=== PATIENT | male | born 1950 | race Caucasian/White ===

== ENCOUNTER 2021-03-05 16:57 | Inpatient (IN) ==
[2021-03-05] MEDS ORDERED: Ondansetron ODT 4 MG TAB.RAPDIS SL PRN (22:45)
[2021-03-05] MEDS ORDERED: Melatonin 3 MG TABLET PO PRN (22:45)
[2021-03-05] MEDS ORDERED: Naloxone 0.4 MG/ML INJ IVP PRN (22:45)
[2021-03-05] MEDS ORDERED: *HR* Heparin 5,000 UNIT/ML VIAL IVP PRN (22:49)
[2021-03-05] MEDS ORDERED: *HR* Dextrose 50 % in Water (Syg) 50 ML SYRINGE IVP PRN (22:51)
[2021-03-05] MEDS ORDERED: D5% in Water 1,000 ML IVC PRN (22:51)
[2021-03-05] MEDS ORDERED: Dextrose Gel 15 GM/37.5 ML TUBE PO PRN ×2 (22:51)
[2021-03-05] MEDS ORDERED: *HR* Metoprolol 5 MG/5 ML VIAL IVP PRN (23:08)
[2021-03-05 23:35] LABS: Hematocrit 39.9 % (37.5-50.1); Mean Corpuscular HGB Conc 30.1 g/dL (31.6-35.5); Mean Corpuscular Hemoglobin 25.9 pg (28.0-33.3); Mean Corpuscular Volume 86.2 fL (83.0-100.0); Mean Platelet Volume 11.7 fL (9.4-12.4); Platelet Count 250 K/mcL (140-400); Red Blood Count 4.63 M/mcL (4.19-5.50); Red Cell Distribution Width 16.8 % (11.5-14.5); White Blood Count 10.7 K/mcL (4.3-11.1)
[2021-03-05] MEDS: Insulin LISPRO 300 UNITS/3 ML VIAL SUBQ SCH (23:36)
[2021-03-06 00:50] LABS: INR 1.3; Prothrombin Time 14.2 Seconds (9.4-12.1)
[2021-03-06 00:52] LABS: Activated Partial Thrombo Time 64.9 Seconds (26.0-36.0); C-Reactive Protein 33 mg/L (Less than 10); Lactate Dehydrogenase 898 Units/L (140-271)
[2021-03-06 00:56] LABS: Albumin 3.6 g/dL (3.5-5.7); Albumin/Globulin Ratio 1.2 (1.1-2.2); Bilirubin,Total 0.6 mg/dL (0.3-1.0); Globulin 3.1 g/dL (2.4-3.5); Potassium 4.2 mEq/L (3.5-5.1); Total Protein 6.7 g/dL (6.4-8.9); Troponin I 0.41 ng/mL (< 0.04)
[2021-03-06 01:18] LABS: Ferritin > 1500 ng/mL (20-250)
[2021-03-06] MEDS: Heparin 25,000UNIT/250ML 1/2NS 25,000 UNIT/250 ML IV.SOLN IVC SCH (01:28)
[2021-03-06] MEDS: Metoprolol XL (24 HR) Succ 50 MG TAB.ER.24H PO SCH ×2 (02:13→09:26)
[2021-03-06] MEDS ORDERED: 0.9 % Sodium Chloride 1,000 ML IVC SCH (02:15)
[2021-03-06 03:05] LABS: Hepatitis B Surface Antigen Nonreactive (Nonreactive)
[2021-03-06 03:33] LABS: Hepatitis B Core IgM Nonreactive (Nonreactive)
[2021-03-06 03:34] LABS: Hepatitis C Virus Antibody Nonreactive (Nonreactive)
[2021-03-06 03:35] LABS: Hepatitis A Antibody IgM Nonreactive (Nonreactive)
[2021-03-06] MEDS: Insulin LISPRO 300 UNITS/3 ML VIAL SUBQ SCH ×4 (05:41→23:24)
[2021-03-06] MEDS ORDERED: Perflutren Lipid Microsphere 1.3 ML in 0.9 % Sodium Chloride 8.7 ML IVP PRN (07:25)
[2021-03-06 08:45] LABS: Acetaminophen < 10 mcg/mL (10-20); Ethanol < 10 mg/dL (Less than 10); Lactate Dehydrogenase 762 Units/L (140-271); Salicylate < 2.5 mg/dL (15.0-30.0); Total Protein 6.7 g/dL (6.4-8.9)
[2021-03-06] MEDS: cefTRIAXone 1,000 MG in 0.9 % Sodium Chloride Mini Bag 100 ML IVPB SCH (09:25)
[2021-03-06] MEDS: *HR* Heparin 5,000 UNIT/ML VIAL IVP PRN (09:26)
[2021-03-06] MEDS: Azithromycin 500 MG in 0.9 % Sodium Chloride 250 ML IVPB SCH (10:08)
[2021-03-06] MEDS ORDERED: Azithromycin 500 MG in D5% in Water 250 ML IVPB SCH (14:00)
[2021-03-06] MEDS ORDERED: NON-FORMULARY MEDICATION 1 EACH EACH (Metoprolol Succinate [Toprol Xl] 100 MG Tab.Er.24h) PO SCH (14:00)
[2021-03-06] MEDS: Insulin DETEMIR 100 UNIT/ML X5UNITS SUBQ SCH (20:16)
[2021-03-06] MEDS ORDERED: Metoprolol XL (24 HR) Succ 50 MG TAB.ER.24H PO SCH (21:00)
[2021-03-07] MEDS: Heparin 25,000UNIT/250ML 1/2NS 25,000 UNIT/250 ML IV.SOLN IVC SCH ×2 (00:12→19:53)
[2021-03-07 00:30] LABS: Basophils % 0.2 %; Hematocrit 40.6 % (37.5-50.1); Hemoglobin 12.3 g/dL (12.9-16.9); Immature Granulocytes % 0.5 % (0-4); Lymphocytes # 0.8 K/mcL (0.6-4.6); Lymphocytes % 7.1 %; Mean Corpuscular HGB Conc 30.3 g/dL (31.6-35.5); Mean Corpuscular Hemoglobin 26.1 pg (28.0-33.3); Mean Corpuscular Volume 86.2 fL (83.0-100.0); Mean Platelet Volume 11.7 fL (9.4-12.4); Monocytes # 0.7 K/mcL (0.0-1.3); Monocytes % 6.3 %; Neutrophils # 9.4 K/mcL (1.6-8.9); Nucleated Red Blood Cells 2.6 /100 WBC (0); Platelet Count 258 K/mcL (140-400); Red Blood Count 4.71 M/mcL (4.19-5.50); Red Cell Distribution Width 16.8 % (11.5-14.5); Segmented Neutrophils % 85.9 %
[2021-03-07] MEDS: *HR* Heparin 5,000 UNIT/ML VIAL IVP PRN ×2 (00:50→19:53)
[2021-03-07 01:01] LABS: Alanine Aminotransferase 939 Units/L (7-52); Albumin 3.5 g/dL (3.5-5.7); Albumin/Globulin Ratio 1.1 (1.1-2.2); Alkaline Phosphatase 68 Units/L (34-104); Aspartate Amino Transferase 636 Units/L (13-39); BUN/Creatinine Ratio 42 (6-26); Bilirubin,Total 0.6 mg/dL (0.3-1.0); Blood Urea Nitrogen 53 mg/dL (8-23); C-Reactive Protein 22 mg/L (Less than 10); Calcium 8.1 mg/dL (8.6-10.3); Carbon Dioxide 30 mEq/L (23-29); Chloride 98 mEq/L (98-107); Globulin 3.1 g/dL (2.4-3.5); Glucose 236 mg/dL (70-105); Osmolality,Calculated 306 (280-300); Potassium 4.3 mEq/L (3.5-5.1); Sodium 137 mEq/L (136-145); Total Protein 6.6 g/dL (6.4-8.9); eGFR For African Americans > 60 (> 60); eGFR For Non-African Americans 57 (> 60)
[2021-03-07] MEDS: Insulin LISPRO 300 UNITS/3 ML VIAL SUBQ SCH ×3 (05:49→18:02)
[2021-03-07] MEDS: Aspirin Enteric Coated 81 MG Tablet PO SCH (08:10)
[2021-03-07] MEDS: Metoprolol XL (24 HR) Succ 50 MG TAB.ER.24H PO SCH ×2 (08:10→19:59)
[2021-03-07] MEDS: FLUoxetine 20 MG CAPSULE PO SCH (08:10)
[2021-03-07] MEDS: Azithromycin 500 MG in 0.9 % Sodium Chloride 250 ML IVPB SCH (08:11)
[2021-03-07] MEDS ORDERED: Furosemide 20 MG/2 ML VIAL IVP ONE (11:16)
[2021-03-07] MEDS: cefTRIAXone 1,000 MG in 0.9 % Sodium Chloride Mini Bag 100 ML IVPB SCH (11:27)
[2021-03-07] MEDS: Insulin DETEMIR 100 UNIT/ML X5UNITS SUBQ SCH (19:59)
[2021-03-08] MEDS: Insulin LISPRO 300 UNITS/3 ML VIAL SUBQ SCH ×4 (00:49→18:22)
[2021-03-08 04:27] LABS: Basophils % 0.2 %; Hematocrit 40.2 % (37.5-50.1); Hemoglobin 12.2 g/dL (12.9-16.9); Immature Granulocytes % 0.8 % (0-4); Lymphocytes % 8.2 %; Mean Corpuscular HGB Conc 30.3 g/dL (31.6-35.5); Mean Corpuscular Hemoglobin 25.9 pg (28.0-33.3); Mean Corpuscular Volume 85.4 fL (83.0-100.0); Mean Platelet Volume 11.6 fL (9.4-12.4); Monocytes % 8.3 %; Neutrophils # 9.8 K/mcL (1.6-8.9); Nucleated Red Blood Cells 3.3 /100 WBC (0); Platelet Count 245 K/mcL (140-400); Red Blood Count 4.71 M/mcL (4.19-5.50); Red Cell Distribution Width 16.8 % (11.5-14.5); Segmented Neutrophils % 82.5 %; White Blood Count 11.8 K/mcL (4.3-11.1)
[2021-03-08 05:00] LABS: Alanine Aminotransferase 737 Units/L (7-52); Albumin 3.5 g/dL (3.5-5.7); Albumin/Globulin Ratio 1.2 (1.1-2.2); Alkaline Phosphatase 75 Units/L (34-104); Aspartate Amino Transferase 235 Units/L (13-39); BUN/Creatinine Ratio 51 (6-26); Bilirubin,Total 0.7 mg/dL (0.3-1.0); Blood Urea Nitrogen 45 mg/dL (8-23); Calcium 8.2 mg/dL (8.6-10.3); Carbon Dioxide 32 mEq/L (23-29); Chloride 99 mEq/L (98-107); Glucose 232 mg/dL (70-105); Magnesium 1.7 mg/dL (1.6-2.6); Osmolality,Calculated 305 (280-300); Sodium 138 mEq/L (136-145); Total Protein 6.5 g/dL (6.4-8.9); eGFR For African Americans > 60 (> 60); eGFR For Non-African Americans > 60 (> 60)
[2021-03-08] MEDS: Azithromycin 500 MG in 0.9 % Sodium Chloride 250 ML IVPB SCH (09:02)
[2021-03-08] MEDS: Metoprolol XL (24 HR) Succ 50 MG TAB.ER.24H PO SCH (09:03)
[2021-03-08] MEDS: Aspirin Enteric Coated 81 MG Tablet PO SCH (09:03)
[2021-03-08] MEDS: FLUoxetine 20 MG CAPSULE PO SCH (09:03)
[2021-03-08] MEDS: cefTRIAXone 1,000 MG in 0.9 % Sodium Chloride Mini Bag 100 ML IVPB SCH (09:04)
[2021-03-08] MEDS: Insulin DETEMIR 100 UNIT/ML X5UNITS SUBQ SCH ×2 (09:05→20:45)
[2021-03-08] MEDS: Heparin 25,000UNIT/250ML 1/2NS 25,000 UNIT/250 ML IV.SOLN IVC SCH (09:25)
[2021-03-08] MEDS: Furosemide 20 MG/2 ML VIAL IVP SCH (11:37)
[2021-03-08] MEDS ORDERED: *HR* Metoprolol 5 MG/5 ML VIAL IVP ONE (16:49)
[2021-03-08] MEDS: Sacubitril/Valsartan 24/26 MG 1 TABLET PO SCH (20:44)
[2021-03-08] MEDS ORDERED: Metoprolol XL (24 HR) Succ 50 MG TAB.ER.24H PO SCH (21:00)
[2021-03-08] MEDS ORDERED: Insulin LISPRO 300 UNITS/3 ML VIAL SUBQ SCH (21:00)
[2021-03-09] MEDS ORDERED: Insulin LISPRO 300 UNITS/3 ML VIAL SUBQ ONE (00:12)
[2021-03-09] MEDS: Heparin 25,000UNIT/250ML 1/2NS 25,000 UNIT/250 ML IV.SOLN IVC SCH ×2 (05:05→19:21)
[2021-03-09 06:45] LABS: Basophils % 0.2 %; Hematocrit 43.9 % (37.5-50.1); Hemoglobin 13.6 g/dL (12.9-16.9); Lymphocytes # 0.9 K/mcL (0.6-4.6); Lymphocytes % 7.6 %; Mean Corpuscular Hemoglobin 26.2 pg (28.0-33.3); Mean Corpuscular Volume 84.4 fL (83.0-100.0); Mean Platelet Volume 12.1 fL (9.4-12.4); Monocytes # 1.1 K/mcL (0.0-1.3); Monocytes % 8.8 %; Nucleated Red Blood Cells 2.1 /100 WBC (0); Platelet Count 282 K/mcL (140-400); Red Cell Distribution Width 17.6 % (11.5-14.5); Segmented Neutrophils % 82.4 %; White Blood Count 12.1 K/mcL (4.3-11.1)
[2021-03-09 07:07] LABS: Alanine Aminotransferase 491 Units/L (7-52); Albumin 3.6 g/dL (3.5-5.7); Albumin/Globulin Ratio 1.2 (1.1-2.2); Alkaline Phosphatase 88 Units/L (34-104); Aspartate Amino Transferase 80 Units/L (13-39); BUN/Creatinine Ratio 37 (6-26); Bilirubin,Total 1.1 mg/dL (0.3-1.0); Blood Urea Nitrogen 26 mg/dL (8-23); Calcium 8.5 mg/dL (8.6-10.3); Carbon Dioxide 36 mEq/L (23-29); Chloride 94 mEq/L (98-107); Globulin 3.1 g/dL (2.4-3.5); Glucose 243 mg/dL (70-105); Osmolality,Calculated 299 (280-300); Potassium 3.6 mEq/L (3.5-5.1); Sodium 138 mEq/L (136-145); Total Protein 6.7 g/dL (6.4-8.9); eGFR For African Americans > 60 (> 60); eGFR For Non-African Americans > 60 (> 60)
[2021-03-09] MEDS: Insulin LISPRO 300 UNITS/3 ML VIAL SUBQ SCH ×4 (09:10→21:45)
[2021-03-09] MEDS: FLUoxetine 20 MG CAPSULE PO SCH (09:11)
[2021-03-09] MEDS: Azithromycin 250 MG TABLET PO SCH (09:11)
[2021-03-09] MEDS: Aspirin Enteric Coated 81 MG Tablet PO SCH (09:12)
[2021-03-09] MEDS: Sacubitril/Valsartan 24/26 MG 1 TABLET PO SCH ×2 (09:12→21:52)
[2021-03-09] MEDS: Insulin DETEMIR 100 UNIT/ML X5UNITS SUBQ SCH ×2 (09:14→22:43)
[2021-03-09] MEDS: Furosemide 20 MG/2 ML VIAL IVP SCH (09:14)
[2021-03-09] MEDS: cefTRIAXone 1,000 MG in 0.9 % Sodium Chloride Mini Bag 100 ML IVPB SCH (09:15)
[2021-03-09] MEDS: Spironolactone 12.5 MG TABLET PO SCH (09:28)
[2021-03-09] MEDS: Metoprolol XL (24 HR) Succ 50 MG TAB.ER.24H PO SCH (09:29)
[2021-03-09] MEDS ORDERED: Insulin Human Regular 10 UNIT in 0.9 % Sodium Chloride 10 ML IV ONE (20:55)
[2021-03-09] MEDS ORDERED: Insulin DETEMIR 100 UNIT/ML X5UNITS SUBQ SCH (21:00)
[2021-03-09] MEDS ORDERED: Insulin DETEMIR 100 UNIT/ML X5UNITS SUBQ ONE (21:30)
[2021-03-10] MEDS: Aspirin Enteric Coated 81 MG Tablet PO SCH (08:09)
[2021-03-10] MEDS: Spironolactone 12.5 MG TABLET PO SCH (08:09)
[2021-03-10] MEDS: Metoprolol XL (24 HR) Succ 50 MG TAB.ER.24H PO SCH (08:09)
[2021-03-10] MEDS: Azithromycin 250 MG TABLET PO SCH (08:10)
[2021-03-10] MEDS: FLUoxetine 20 MG CAPSULE PO SCH (08:11)
[2021-03-10] MEDS: Sacubitril/Valsartan 24/26 MG 1 TABLET PO SCH ×2 (08:11→20:55)
[2021-03-10] MEDS: Furosemide 20 MG/2 ML VIAL IVP SCH (08:11)
[2021-03-10] MEDS: cefTRIAXone 1,000 MG in 0.9 % Sodium Chloride Mini Bag 100 ML IVPB SCH (08:12)
[2021-03-10] MEDS: Insulin LISPRO 300 UNITS/3 ML VIAL SUBQ SCH ×4 (08:13→21:53)
[2021-03-10] MEDS: Apixaban 5 MG TABLET PO SCH ×2 (10:10→20:55)
[2021-03-10] MEDS: Cholecalciferol (D-3) 1,000 UNIT (25MCG) TABLET PO SCH (10:11)
[2021-03-10] MEDS: Insulin DETEMIR 100 UNIT/ML X5UNITS SUBQ SCH ×2 (10:11→20:55)
[2021-03-11 01:21] LABS: Alanine Aminotransferase 236 Units/L (7-52); Albumin 3.4 g/dL (3.5-5.7); Albumin/Globulin Ratio 1.2 (1.1-2.2); Alkaline Phosphatase 70 Units/L (34-104); Aspartate Amino Transferase 30 Units/L (13-39); Bilirubin,Direct 0.2 mg/dL (0.0-0.2); Bilirubin,Indirect 0.8 mg/dL (0.0-1.0); Globulin 2.9 g/dL (2.4-3.5); Total Protein 6.3 g/dL (6.4-8.9)
[2021-03-11 07:33] VITALS: TEMP 96.9
[2021-03-11] MEDS: Furosemide 20 MG/2 ML VIAL IVP SCH (07:58)
[2021-03-11] MEDS: Apixaban 5 MG TABLET PO SCH (07:59)
[2021-03-11] MEDS: Metoprolol XL (24 HR) Succ 50 MG TAB.ER.24H PO SCH (07:59)
[2021-03-11] MEDS: FLUoxetine 20 MG CAPSULE PO SCH (07:59)
[2021-03-11] MEDS: Aspirin Enteric Coated 81 MG Tablet PO SCH (08:01)
[2021-03-11] MEDS: Spironolactone 12.5 MG TABLET PO SCH (08:01)
[2021-03-11] MEDS: Cholecalciferol (D-3) 1,000 UNIT (25MCG) TABLET PO SCH (08:01)
[2021-03-11] MEDS: Insulin LISPRO 300 UNITS/3 ML VIAL SUBQ SCH ×2 (08:01→11:35)
[2021-03-11] MEDS: Sacubitril/Valsartan 24/26 MG 1 TABLET PO SCH (08:01)
[2021-03-11] MEDS ORDERED: Insulin DETEMIR 100 UNIT/ML X5UNITS SUBQ SCH (09:00)
[2021-03-11] MEDS ORDERED: dexAMETHasone 4 MG TABLET PO SCH (09:00)
[2021-03-11 09:33] LABS: BUN/Creatinine Ratio 47 (6-26); Blood Urea Nitrogen 40 mg/dL (8-23); Calcium 8.2 mg/dL (8.6-10.3); Carbon Dioxide 34 mEq/L (23-29); Chloride 91 mEq/L (98-107); Glucose 383 mg/dL (70-105); Osmolality,Calculated 308 (280-300); Potassium 4.2 mEq/L (3.5-5.1); Sodium 136 mEq/L (136-145); eGFR For African Americans > 60 (> 60); eGFR For Non-African Americans > 60 (> 60)
[2021-03-11 11:18] VITALS: BP 113/91; PULSE 97
[2021-03-11 13:27] VITALS: O2SAT 94
== END 2021-03-11 18:06 | disposition home or self-care (01) | DRG 871 ==
LOC: 2NENU → SUATTDRO 22:45
PROVIDERS: ADMIT Student in an Organized Health Care Education/Training Program; ATTEND Internal Medicine

== ENCOUNTER 2021-04-12 14:02 | Inpatient (IN) ==
[2021-04-12 18:02] LABS: BUN/Creatinine Ratio 34 (6-26); Blood Urea Nitrogen 33 mg/dL (8-23); Calcium 8.9 mg/dL (8.6-10.3); Carbon Dioxide 30 mEq/L (23-29); Chloride 97 mEq/L (98-107); Glucose 201 mg/dL (70-105); Osmolality,Calculated 297 (280-300); Sodium 137 mEq/L (136-145); Troponin I 0.03 ng/mL (< 0.04); eGFR For African Americans > 60 (> 60); eGFR For Non-African Americans > 60 (> 60)
[2021-04-12] MEDS ORDERED: Furosemide 80 MG in 0.9 % Sodium Chloride 50 ML IVPB ONE (19:03)
[2021-04-12 19:30] LABS: Basophils % 0.3 %; Eosinophils % 0.3 %; Hematocrit 44.3 % (37.5-50.1); Hemoglobin 13.6 g/dL (12.9-16.9); Immature Granulocytes % 0.4 % (0-4); Lymphocytes # 1.8 K/mcL (0.6-4.6); Lymphocytes % 15.3 %; Mean Corpuscular HGB Conc 30.7 g/dL (31.6-35.5); Mean Corpuscular Hemoglobin 26.5 pg (28.0-33.3); Mean Corpuscular Volume 86.4 fL (83.0-100.0); Monocytes % 8.5 %; Neutrophils # 8.6 K/mcL (1.6-8.9); Nucleated Red Blood Cells 0.4 /100 WBC (0); Platelet Count 356 K/mcL (140-400); Red Blood Count 5.13 M/mcL (4.19-5.50); Segmented Neutrophils % 75.2 %; White Blood Count 11.5 K/mcL (4.3-11.1)
[2021-04-12] MEDS ORDERED: Ondansetron 4 MG/2 ML VIAL IVP PRN (22:45)
[2021-04-12] MEDS ORDERED: Naloxone 0.4 MG/ML INJ IVP PRN (22:45)
[2021-04-12] MEDS ORDERED: *HR* Dextrose 50 % in Water (Syg) 50 ML SYRINGE IVP PRN (22:47)
[2021-04-12] MEDS ORDERED: Dextrose Gel 15 GM/37.5 ML TUBE PO PRN ×2 (22:47)
[2021-04-12] MEDS ORDERED: D5% in Water 1,000 ML IVC PRN (22:47)
[2021-04-13] MEDS ORDERED: Furosemide 40 MG/4 ML VIAL IVP ONE (01:35)
[2021-04-13] MEDS: Apixaban 5 MG TABLET PO SCH ×2 (03:58→08:43)
[2021-04-13 06:22] LABS: Basophils # 0.1 K/mcL (0.0-0.2); Basophils % 0.5 %; Eosinophils # 0.1 K/mcL (0.0-0.6); Eosinophils % 1.2 %; Hematocrit 42.7 % (37.5-50.1); Hemoglobin 13.1 g/dL (12.9-16.9); Immature Granulocytes % 0.3 % (0-4); Lymphocytes # 1.7 K/mcL (0.6-4.6); Lymphocytes % 17.2 %; Mean Corpuscular HGB Conc 30.7 g/dL (31.6-35.5); Mean Corpuscular Hemoglobin 26.4 pg (28.0-33.3); Mean Corpuscular Volume 86.1 fL (83.0-100.0); Monocytes # 0.9 K/mcL (0.0-1.3); Monocytes % 8.6 %; Neutrophils # 7.2 K/mcL (1.6-8.9); Nucleated Red Blood Cells 0.3 /100 WBC (0); Platelet Count 305 K/mcL (140-400); Red Blood Count 4.96 M/mcL (4.19-5.50); Segmented Neutrophils % 72.2 %; White Blood Count 9.9 K/mcL (4.3-11.1)
[2021-04-13 06:41] LABS: Alanine Aminotransferase 168 Units/L (7-52); Albumin 3.5 g/dL (3.5-5.7); Albumin/Globulin Ratio 1.3 (1.1-2.2); Alkaline Phosphatase 64 Units/L (34-104); Aspartate Amino Transferase 82 Units/L (13-39); BUN/Creatinine Ratio 34 (6-26); Blood Urea Nitrogen 32 mg/dL (8-23); Calcium 8.7 mg/dL (8.6-10.3); Carbon Dioxide 33 mEq/L (23-29); Chloride 98 mEq/L (98-107); Globulin 2.7 g/dL (2.4-3.5); Glucose 135 mg/dL (70-105); Magnesium 1.7 mg/dL (1.6-2.6); Osmolality,Calculated 299 (280-300); Phosphorous 4.9 mg/dL (2.7-4.5); Potassium 3.7 mEq/L (3.5-5.1); Sodium 140 mEq/L (136-145); Total Protein 6.2 g/dL (6.4-8.9); eGFR For African Americans > 60 (> 60); eGFR For Non-African Americans > 60 (> 60)
[2021-04-13] MEDS: Insulin LISPRO 300 UNITS/3 ML VIAL SUBQ SCH ×4 (08:45→21:23)
[2021-04-13] MEDS: Metoprolol XL (24 HR) Succ 50 MG TAB.ER.24H PO SCH (10:27)
[2021-04-13] MEDS ORDERED: *HR* Heparin 5,000 UNIT/ML VIAL IVP PRN ×2 (21:00)
[2021-04-13] MEDS ORDERED: *HR* Heparin 5,000 UNIT/ML VIAL IVP ONE (21:00)
[2021-04-13] MEDS ORDERED: Heparin 25,000UNIT/250ML 1/2NS 25,000 UNIT/250 ML IV.SOLN IVC SCH (21:00)
[2021-04-13 21:22] LABS: Hematocrit 45.2 % (37.5-50.1); Hemoglobin 13.4 g/dL (12.9-16.9); Mean Corpuscular HGB Conc 29.6 g/dL (31.6-35.5); Mean Corpuscular Hemoglobin 26.5 pg (28.0-33.3); Mean Corpuscular Volume 89.3 fL (83.0-100.0); Mean Platelet Volume 11.3 fL (9.4-12.4); Platelet Count 320 K/mcL (140-400); Red Blood Count 5.06 M/mcL (4.19-5.50); Red Cell Distribution Width 19.3 % (11.5-14.5); White Blood Count 9.7 K/mcL (4.3-11.1)
[2021-04-13 21:29] LABS: Heparin anti-factor XA UFH 0.87 IU/mL (0.30-0.70); INR 1.4
[2021-04-13] MEDS: Acetaminophen 325 MG TABLET PO PRN (21:48)
[2021-04-13] MEDS: Sacubitril/Valsartan 24/26 MG 1 TABLET PO SCH (21:48)
[2021-04-13] MEDS: Melatonin 3 MG TABLET PO PRN (21:48)
[2021-04-13] MEDS: Heparin 25,000UNIT/250ML 1/2NS 25,000 UNIT/250 ML IV.SOLN IVC SCH (22:00)
[2021-04-13 23:09] LABS: Activated Partial Thrombo Time 37.9 Seconds (26.0-36.0)
[2021-04-13] MEDS: Insulin DETEMIR 100 UNIT/ML X5UNITS SUBQ SCH (23:16)
[2021-04-14 03:07] LABS: Hematocrit 44.7 % (37.5-50.1); Hemoglobin 13.3 g/dL (12.9-16.9); Mean Corpuscular HGB Conc 29.8 g/dL (31.6-35.5); Mean Corpuscular Hemoglobin 26.3 pg (28.0-33.3); Mean Corpuscular Volume 88.3 fL (83.0-100.0); Mean Platelet Volume 10.5 fL (9.4-12.4); Platelet Count 294 K/mcL (140-400); Red Blood Count 5.06 M/mcL (4.19-5.50); Red Cell Distribution Width 19.4 % (11.5-14.5); White Blood Count 11.2 K/mcL (4.3-11.1)
[2021-04-14 03:29] LABS: BUN/Creatinine Ratio 32 (6-26); Blood Urea Nitrogen 30 mg/dL (8-23); Calcium 8.8 mg/dL (8.6-10.3); Carbon Dioxide 38 mEq/L (23-29); Chloride 99 mEq/L (98-107); Glucose 130 mg/dL (70-105); Osmolality,Calculated 302 (280-300); Potassium 3.5 mEq/L (3.5-5.1); Sodium 142 mEq/L (136-145); eGFR For African Americans > 60 (> 60); eGFR For Non-African Americans > 60 (> 60)
[2021-04-14] MEDS: Insulin LISPRO 300 UNITS/3 ML VIAL SUBQ SCH ×4 (08:22→21:26)
[2021-04-14] MEDS: FLUoxetine 20 MG CAPSULE PO SCH (08:22)
[2021-04-14] MEDS: Metoprolol XL (24 HR) Succ 50 MG TAB.ER.24H PO SCH (08:23)
[2021-04-14] MEDS: Sacubitril/Valsartan 24/26 MG 1 TABLET PO SCH ×2 (08:23→21:26)
[2021-04-14] MEDS: Aspirin Enteric Coated 81 MG Tablet PO SCH (08:23)
[2021-04-14] MEDS ORDERED: 0.9 % Sodium Chloride 500 ML IVC ONE (08:24)
[2021-04-14] MEDS ORDERED: Lidocaine Viscous Oral Soln 15 ML SOLUTION MM PRN (08:24)
[2021-04-14] MEDS ORDERED: *HR* Midazolam HCl 2 MG/2 ML VIAL IVP PRN (08:24)
[2021-04-14] MEDS: Insulin DETEMIR 100 UNIT/ML X5UNITS SUBQ SCH ×2 (08:27→21:26)
[2021-04-14] MEDS ORDERED: *HR* Midazolam HCl 5 MG/5 ML VIAL IVP ONE ×2 (09:03)
[2021-04-14] MEDS: *HR* FentaNYL (PF) 100 MCG/2 ML VIAL IVP PRN ×2 (09:20→09:40)
[2021-04-14] MEDS ORDERED: Amiodarone Premix 150 MG/100 ML BAG IVPB ONE ×2 (11:00→13:45)
[2021-04-14] MEDS ORDERED: Amiodarone Premix 360 MG/200 ML BAG IVC ONE (11:20)
[2021-04-14] MEDS ORDERED: *HR* FentaNYL (PF) 100 MCG/2 ML VIAL ONE (11:22)
[2021-04-14] MEDS ORDERED: *HR* Midazolam HCl 2 MG/2 ML VIAL ONE (11:22)
[2021-04-14] MEDS ORDERED: Heparin 1,000 UNITS/500 mL 500 ML ONE (11:23)
[2021-04-14] MEDS ORDERED: 0.9 % Sodium Chloride 1,000 ML ONE (11:23)
[2021-04-14] MEDS ORDERED: ISOVUE-370 200 ML INFUS..BTL ONE (11:23)
[2021-04-14] MEDS ORDERED: *HR* Heparin 10,000 UNIT/10 ML VIAL ONE (11:23)
[2021-04-14] MEDS ORDERED: Nitroglycerin 1,000 MCG/5 ML VIAL IV ONE (11:54)
[2021-04-14] MEDS: Furosemide 40 MG/4 ML VIAL IVP SCH (13:47)
[2021-04-14] MEDS: Spironolactone 25 MG TABLET PO SCH (13:47)
[2021-04-14] MEDS: Heparin 25,000UNIT/250ML 1/2NS 25,000 UNIT/250 ML IV.SOLN IVC SCH (17:33)
[2021-04-14] MEDS: Acetaminophen 325 MG TABLET PO PRN (21:26)
[2021-04-14] MEDS: Apixaban 5 MG TABLET PO SCH (21:26)
[2021-04-14] MEDS: Melatonin 3 MG TABLET PO PRN (21:26)
[2021-04-14] MEDS: Amiodarone Premix 360 MG/200 ML BAG IVC SCH (21:27)
[2021-04-15 02:08] LABS: Basophils % 0.2 %; Eosinophils # 0.1 K/mcL (0.0-0.6); Eosinophils % 1.2 %; Hematocrit 39.9 % (37.5-50.1); Immature Granulocytes % 0.5 % (0-4); Lymphocytes # 1.4 K/mcL (0.6-4.6); Lymphocytes % 16.4 %; Mean Corpuscular HGB Conc 29.1 g/dL (31.6-35.5); Mean Corpuscular Hemoglobin 26.1 pg (28.0-33.3); Mean Corpuscular Volume 89.7 fL (83.0-100.0); Mean Platelet Volume 10.7 fL (9.4-12.4); Monocytes % 11.6 %; Platelet Count 253 K/mcL (140-400); Red Blood Count 4.45 M/mcL (4.19-5.50); Red Cell Distribution Width 19.2 % (11.5-14.5); Segmented Neutrophils % 70.1 %; White Blood Count 8.6 K/mcL (4.3-11.1)
[2021-04-15 02:29] LABS: BUN/Creatinine Ratio 32 (6-26); Blood Urea Nitrogen 28 mg/dL (8-23); Carbon Dioxide 32 mEq/L (23-29); Chloride 97 mEq/L (98-107); Glucose 134 mg/dL (70-105); Magnesium 1.7 mg/dL (1.6-2.6); Osmolality,Calculated 289 (280-300); Potassium 3.6 mEq/L (3.5-5.1); Sodium 136 mEq/L (136-145); eGFR For African Americans > 60 (> 60); eGFR For Non-African Americans > 60 (> 60)
[2021-04-15 02:31] LABS: Hemoglobin 11.6 g/dL (12.9-16.9)
[2021-04-15] MEDS: Furosemide 40 MG/4 ML VIAL IVP SCH (07:24)
[2021-04-15] MEDS: Insulin LISPRO 300 UNITS/3 ML VIAL SUBQ SCH ×4 (07:25→20:01)
[2021-04-15] MEDS: FLUoxetine 20 MG CAPSULE PO SCH (07:25)
[2021-04-15] MEDS: Aspirin Enteric Coated 81 MG Tablet PO SCH (07:26)
[2021-04-15] MEDS: Metoprolol XL (24 HR) Succ 50 MG TAB.ER.24H PO SCH (07:26)
[2021-04-15] MEDS: Apixaban 5 MG TABLET PO SCH ×2 (07:26→20:00)
[2021-04-15] MEDS: Spironolactone 25 MG TABLET PO SCH (07:26)
[2021-04-15] MEDS: Sacubitril/Valsartan 24/26 MG 1 TABLET PO SCH ×2 (07:26→20:00)
[2021-04-15] MEDS: Insulin DETEMIR 100 UNIT/ML X5UNITS SUBQ SCH ×2 (07:31→20:00)
[2021-04-15] MEDS: Amiodarone Premix 360 MG/200 ML BAG IVC SCH (09:26)
[2021-04-15] MEDS: *HR* Amiodarone 200 MG TABLET PO SCH ×2 (11:25→20:00)
[2021-04-16 02:34] LABS: Basophils % 0.2 %; Eosinophils # 0.1 K/mcL (0.0-0.6); Eosinophils % 1.3 %; Hematocrit 39.1 % (37.5-50.1); Hemoglobin 11.4 g/dL (12.9-16.9); Immature Granulocytes % 0.2 % (0-4); Lymphocytes # 1.7 K/mcL (0.6-4.6); Lymphocytes % 19.6 %; Mean Corpuscular HGB Conc 29.2 g/dL (31.6-35.5); Mean Corpuscular Volume 89.3 fL (83.0-100.0); Mean Platelet Volume 10.7 fL (9.4-12.4); Monocytes # 1.1 K/mcL (0.0-1.3); Monocytes % 12.7 %; Neutrophils # 5.9 K/mcL (1.6-8.9); Platelet Count 302 K/mcL (140-400); Red Blood Count 4.38 M/mcL (4.19-5.50); Red Cell Distribution Width 18.8 % (11.5-14.5); White Blood Count 8.9 K/mcL (4.3-11.1)
[2021-04-16 02:49] LABS: BUN/Creatinine Ratio 28 (6-26); Blood Urea Nitrogen 21 mg/dL (8-23); Calcium 8.3 mg/dL (8.6-10.3); Carbon Dioxide 35 mEq/L (23-29); Chloride 98 mEq/L (98-107); Glucose 114 mg/dL (70-105); Magnesium 1.9 mg/dL (1.6-2.6); Osmolality,Calculated 288 (280-300); Potassium 3.5 mEq/L (3.5-5.1); Sodium 137 mEq/L (136-145); eGFR For African Americans > 60 (> 60); eGFR For Non-African Americans > 60 (> 60)
[2021-04-16 06:46] VITALS: TEMP 97.8
[2021-04-16] MEDS: Insulin LISPRO 300 UNITS/3 ML VIAL SUBQ SCH ×2 (08:00→11:37)
[2021-04-16] MEDS: Aspirin Enteric Coated 81 MG Tablet PO SCH (08:49)
[2021-04-16] MEDS: FLUoxetine 20 MG CAPSULE PO SCH (08:49)
[2021-04-16] MEDS: Spironolactone 25 MG TABLET PO SCH (08:49)
[2021-04-16] MEDS: Apixaban 5 MG TABLET PO SCH (08:49)
[2021-04-16] MEDS: *HR* Amiodarone 200 MG TABLET PO SCH (08:49)
[2021-04-16] MEDS: Sacubitril/Valsartan 24/26 MG 1 TABLET PO SCH (08:49)
[2021-04-16] MEDS: Metoprolol XL (24 HR) Succ 50 MG TAB.ER.24H PO SCH (08:49)
[2021-04-16] MEDS: Insulin DETEMIR 100 UNIT/ML X5UNITS SUBQ SCH (08:50)
[2021-04-16] MEDS: Furosemide 40 MG/4 ML VIAL IVP SCH (08:50)
[2021-04-16 11:07] VITALS: BP 138/112; PULSE 66; O2SAT 91
[2021-04-16] MEDS ORDERED: Metoprolol XL (24 HR) Succ 50 MG TAB.ER.24H PO SCH (21:00)
[2021-04-17] MEDS ORDERED: Furosemide 40 MG TABLET PO SCH (09:00)
== END 2021-04-16 15:30 | disposition home health service (06) | DRG 286 ==
LOC: 3NENU 14:02 → EMEROOARM 14:02 → SUATTDRO 21:12 → 3NENU 22:00
PROVIDERS: ADMIT Internal Medicine; ATTEND Family Medicine